=== PATIENT | male | born 1995 | race Hispanic/Latino ===

== ENCOUNTER 2020-11-03 21:29 | Emergency (ER) | payer OTHER ==
[~2020-11-03] VITALS: Ht 180.3 cm; Wt 114.3 kg
[2020-11-03] MEDS ORDERED: ACETAMINOPHEN 325 MG TAB ONE (22:00)
[2020-11-03] MEDS ORDERED: IBUPROFEN 600 MG TAB ONE (22:00)
[2020-11-03] MEDS ORDERED: IBUPROFEN 600 MG TAB PO STA (22:22)
[2020-11-03] MEDS ORDERED: ACETAMINOPHEN 325 MG TAB PO ONE (22:30)
== END 2020-11-03 22:30 | disposition home or self-care (01) ==
LOC: FSED 21:46
DX: R05 Cough (principal); J20.9 Acute bronchitis, unspecified
CPT/HCPCS: 99283